=== PATIENT | female | born 1955 | race Caucasian/White ===

== ENCOUNTER → 2016-09-13 | Outpatient (CLI) | payer OTHER ==
[~2016-09-13] MED LIST: ACNE MEDICINE; ASPIRIN E.C. 8181 MG PO; CALCIUM 500500 M1 PO; CELEBREX 200MG200 MG PO; CINNAMON500 MG PO; EPA/GLA1 SGL PO; FISH OIL1 POW; GLUCOSAMINE & C1 CA1 PO; HUMALOG100 U/ML; HUMALOG100 U/ML SC; MILK OF MA400 MG/5 M PO; MIRALAX PA17 GM/Dose PO; MULTIPLE VITAMI1 CAP PO; NIASPAN 500MG500 MG PO; ORACEA PO; PRIL40 PO; THERAGRAN1 TA1 PO; TYLENOL 500MG500 MG PO; ULTRAM 50MG TAB50 MG PO; VITAMIN D32000 IU PO; VITAMIN E1000 U/CAP PO; XARELTO10 MG PO; ZOCOR 20MG20 MG PO; ZOCOR PO
== END ==
LOC: COL.VAS 12:30
DX: R07.89 Other chest pain (principal)

== ENCOUNTER → 2017-05-17 | Outpatient (CLI) | payer OTHER | LOC: MC.RAD 14:38 | DX: Z12.31 Encounter for screening mammogram for malignant neoplasm of breast (principal) ==

== ENCOUNTER → 2018-02-06 | Outpatient (CLI) | payer OTHER | LOC: COL.RAD 13:00 | DX: S02.31XA Fracture of orbital floor, right side, initial encounter for closed fracture (principal); Z98.890 Other specified postprocedural states ==

== ENCOUNTER → 2018-03-09 | Outpatient (CLI) | payer OTHER | LOC: COL.RAD 08:08 | DX: R74.8 Abnormal levels of other serum enzymes (principal) ==

== ENCOUNTER → 2018-03-21 | Outpatient (CLI) | payer OTHER | LOC: COL.RAD 11:30 | DX: S02.81XA Fracture of other specified skull and facial bones, right side, initial encounter for closed fracture (principal) ==

== ENCOUNTER → 2018-10-26 | Outpatient (CLI) | payer OTHER | LOC: COL.RAD 14:00 | DX: S02.81XA Fracture of other specified skull and facial bones, right side, initial encounter for closed fracture (principal) ==

== ENCOUNTER → 2018-12-07 | Outpatient (CLI) | payer OTHER | LOC: COL.RAD 12-05 13:30 | DX: R68.82 Decreased libido (principal) ==

== ENCOUNTER → 2022-01-13 | Outpatient (CLI) | payer BC | LOC: MC.RAD 14:56 | DX: Z12.31 Encounter for screening mammogram for malignant neoplasm of breast (principal) ==